=== PATIENT | female | born 1995 | race African-American/Black ===

== ENCOUNTER 2019-01-10 20:18 | Emergency (ER) | payer BC, OTHER ==
[~2019-01-10] VITALS: Ht 172.7 cm; Wt 79.8 kg
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
[2019-01-10] MEDS ORDERED: oxyCODONE/APAP 5/325 1 TAB TABLET PO ONE (23:00)
[2019-01-10 23:16] LABS: BARBITURATES NEG (NEG); BENZODIAZEPINES POS (NEG); CANNABINOIDS POS (NEG); COCAINE NEG (NEG); METHADONE NEG (NEG); OPIATES NEG (NEG); PHENCYCLIDINE NEG (NEG)
[2019-01-10 23:19] LABS: AMPHETAMINE/METHAMPHETAMINE NEG (NEG)
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
[2019-01-10 23:23] LABS: BACTERIA,URINE 0 /HPF (0-FEW); BILIRUBIN,URINE NEG (NEG); CLARITY,URINE CLEAR; COLOR,URINE YELLOW; GLUCOSE,URINE NEG (NEG); NITRITE,URINE NEG (NEG); RBC,URINE 0 /HPF (0-2); SQUAMOUS EPITHELIAL CELL,UR MANY /LPF; UROBILINOGEN,URINE 0.2 mg/dL (0.2 mg/dL); WBC,URINE OCC /HPF (0-4)
[2019-01-10] MEDS ORDERED: ONDANSETRON ODT 4 MG TAB.RAPDIS ONE (23:36)
[2019-01-10] MEDS ORDERED: ONDANSETRON ODT 4 MG TAB.RAPDIS PO ONE (23:45)
[2019-01-11 01:20] VITALS: BP 127/87
== END 2019-01-11 01:23 | disposition home or self-care (01) ==
LOC: ER 20:18
DX: S33.5XXA Sprain of ligaments of lumbar spine, initial encounter (principal); S00.83XA Contusion of other part of head, initial encounter; R51 Headache; F12.90 Cannabis use, unspecified, uncomplicated; Z72.0 Tobacco use; Y04.0XXA Assault by unarmed brawl or fight, initial encounter; Y93.89 Activity, other specified; Y92.89 Other specified places as the place of occurrence of the external cause; Y99.8 Other external cause status
CPT/HCPCS: 36415; 70450; 70486; 72125; 80307; 81001; 81025; 99285; Q0162